=== PATIENT | male | born 1995 | race Caucasian/White ===

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

== ENCOUNTER 2017-02-24 16:52 | Emergency (ER) | payer OTHER ==
[~2017-02-24] VITALS: Ht 175.3 cm; Wt 80.0 kg
[2017-02-24 16:55] VITALS: BP 142/92; PULSE 72; RESP 18; TEMP 97.8; O2SAT 98
[2017-02-24] MEDS ORDERED: FLUT1SPR5 EACH NARE (17:40)
[2017-02-24] MEDS ORDERED: BACT800T5 PO (17:40)
--- NOTE | 2017-02-24 17:44 | PD ---
HPI Chief Complaint: ENT Complaint Time Seen by Provider: 17:29 Travel History International Travel<30 days: No Contact w/Intl Traveler<30days: No Traveled to known affect area: No History of Present Illness HPI 21-year-old male presents to emergency Department with 2 week history of upper respiratory symptoms including sinus congestion, rhinitis, ear pain, sore throat , cough, which is worse at night. Patient denies chest pain or congestion. No wheezing. No nausea, vomiting, or diarrhea. No significant fever. Patient is concerned he may have strep throat. He is allergic to penicillin. PFSH Past Medical History ADHD: Yes (ADHD) Anxiety: Yes Cancer: No Cardiovascular Problems: Yes (HTN) Developmental Delay: No Diabetes: No Diminished Hearing: No Headaches: Yes Hiatal Hernia: Yes Hypertension: Yes (DOES NOT TAKE PRESCRIBED MEDICATIONS) Psychiatric: Yes (ODD) Respiratory: No Immunizations Current: Yes Migraines: No Seizures: No Thyroid Disease: No Ulcer: No PNEUMOCCOCAL Vaccine (Year): 2 Past Surgical History AICD: No Section: Yes (CORD AROUND NECK) Joint Replacement: No Oral Surgery: Yes ([place] teeth) Pacemaker: No Tonsillectomy: Yes (2008 AND ADENOIDS) Other Surgery: No Social History Alcohol Use: No Tobacco Use: No Substance Use: No (Denies today 07/23/16) Allergies-Medications (Allergen,Severity, Reaction): Coded Allergies: penicillin G (Unverified Allergy, Severe, 02/24/17) Reported Meds & Prescriptions Reported Meds & Active Scripts Active Flonase Nasal [place] (Fluticasone Nasal [place]) 50 Mcg/Act [place] 100 Mcg EACH NARE BID Bactrim DS (Sulfamethoxazole-Trimethoprim) 800-160 Mg Tab 1 Tab PO BID Review of Systems Except as stated in HPI: all other systems reviewed are Neg General / Constitutional: No: Fever, Chills Eyes: No: Visual changes HENT: Positive: Headaches, Sore Throat, Rhinitis, Rhinorrhea, Congestion, Earache, No: Vertigo, Lightheadedness, Nosebleed, Neck Stiffness, Neck Pain, Gingival Bleeding, Dental Difficulties, Ear Discharge Cardiovascular: No: Chest Pain or Discomfort Respiratory: Positive: Cough, No: Shortness of Breath, Wheezing, Sneezing Gastrointestinal: No: Nausea, Vomiting, Diarrhea, Abdominal Pain Genitourinary: No: Dysuria Musculoskeletal: No: Pain Skin: No Rash Neurologic: No: Weakness Psychiatric: No: Depression Endocrine: No: Polydipsia Hematologic/Lymphatic: No: Easy Bruising Physical Exam Narrative GENERAL: Patient appears in no acute distress. SKIN: Warm and dry. Normal color. Normal turgor. No rash. HEAD: Atraumatic. Normocephalic. EYES: Pupils equal and round. No scleral icterus. No injection or drainage. ENT: No nasal bleeding or discharge. Mucous membranes pink and moist. TMs are somewhat dull bilaterally without injection. There is having cerumen bilaterally. Patient has moderate sinus tenderness to both frontal and maxillary sinuses with notable swelling turbinates with inspection of the nares. There is purulent drainage noted in the posterior pharynx. Cobblestoning is present in the posterior pharynx as well. There is no significant lymphadenopathy or exudate. NECK: Trachea midline. Supple nontender without significant lymphadenopathy. CARDIOVASCULAR: Regular rate and rhythm. RESPIRATORY: No accessory muscle use. Clear to auscultation. Breath sounds equal bilaterally. GASTROINTESTINAL: Abdomen soft, non-tender, nondistended. Hepatic and splenic margins not palpable. MUSCULOSKELETAL: Extremities without clubbing, cyanosis, or edema. No obvious deformities. NEUROLOGICAL: Awake and alert. No obvious cranial nerve deficits. Motor grossly within normal limits. Five out of 5 muscle strength in the arms and legs. Normal speech. PSYCHIATRIC: Appropriate mood and affect; insight and judgment normal. Data Data Last Documented VS Vital Signs Date Time Temp Pulse Resp B/P (MAP) Pulse Ox O2 Delivery O2 Flow Rate FiO2 02/24/17 17:11 16 02/24/17 16:55 97.8 72 142/92 (109) 98 MDM Medical Decision Making Medical Screen Exam Complete: Yes Emergency Medical Condition: Yes Differential Diagnosis Upper respiratory infection. Sinusitis. Postnasal drip. Cough. Narrative Course Patient will be treated with Bactrim DS twice a day 10 days. Patient also given Flonase nasal spray 2 sprays each nostril daily. Patient can use Tylenol and ibuprofen as needed. Of the symptoms persist or worsen as needed. Diagnosis Primary Impression: Acute sinusitis Qualified Codes: J01.40 - Acute pansinusitis, unspecified Referrals: Primary Care Physician Patient Instructions: General Instructions, Rhinosinusitis (GEN) Additional Instructions: Patient will be treated with Bactrim DS twice a day 10 days. Patient also given Flonase nasal spray 2 sprays each nostril daily. Patient can use Tylenol and ibuprofen as needed. Of the symptoms persist or worsen as needed. Med/Other Pt SpecificInfo: Prescription(s) given Scripts Fluticasone Nasal [place] (Flonase Nasal [place]) 50 Mcg/Act [place] 100 MCG EACH NARE BID for Allergies, #1 BOTTLE 0 Refills Prov: Jewel Baum MD 02/24/17 Sulfamethoxazole-Trimethoprim (Bactrim DS) 800-160 Mg Tab 1 TAB PO BID for Infection, #20 TAB 0 Refills Prov: Jewel Baum MD 02/24/17 Disposition: 01 DISCHARGE HOME Condition: Stable Donis Boateng Feb 24, 2017 17:44
== END 2017-02-24 17:59 | disposition home or self-care (01) ==
LOC: NEPD 16:52
DX: J01.90 Acute sinusitis, unspecified (principal); F90.9 Attention-deficit hyperactivity disorder, unspecified type; F41.9 Anxiety disorder, unspecified; I10 Essential (primary) hypertension; Z88.0 Allergy status to penicillin; Z79.899 Other long term (current) drug therapy
CPT/HCPCS: 99283

== ENCOUNTER 2017-03-22 18:00 | Emergency (ER) | payer OTHER ==
[~2017-03-22] VITALS: Ht 177.8 cm; Wt 94.7 kg
[~2017-03-22 18:00] MED LIST changes: +FLUT1SPR5 EACH NARE
[2017-03-22] MEDS ORDERED: IOHEXOL 350 MG/ML 10 ML VIAL (for RAD DIAG) IVCONTRAST ONE (18:01)
[2017-03-22 18:03] VITALS: BP 177/87; PULSE 98; RESP 16; TEMP 98.1; O2SAT 98
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
[2017-03-22 19:12] LABS: AUTOMATED NEUTROPHIL # 4.6 TH/MM3 (1.8-7.7); BASOPHIL # 0.1 TH/MM3 (0-0.2); BASOPHIL % 1.3 % (0.0-2.0); EOSINOPHIL # 0.1 TH/MM3 (0-0.4); EOSINOPHIL % 0.7 % (0.0-4.0); HEMATOCRIT 51.5 % (39.0-51.0); HEMOGLOBIN 17.5 GM/DL (13.0-17.0); LYMPH % 28.5 % (9.0-44.0); LYMPHOCYTE # 2.1 TH/MM3 (1.0-4.8); MEAN CELL VOLUME 87.7 FL (80.0-100.0); MEAN CORPUSCULAR HEMOGLOBIN 29.7 PG (27.0-34.0); MEAN CORPUSCULAR HGB CONC 33.9 % (32.0-36.0); MEAN PLATELET VOLUME 8.9 FL (7.0-11.0); MONO % 7.3 % (0.0-8.0); MONOCYTE # 0.5 TH/MM3 (0-0.9); NEUT % 62.2 % (16.0-70.0); PLATELET COUNT 246 TH/MM3 (150-450); RED BLOOD COUNT 5.87 MIL/MM3 (4.50-5.90); RED CELL DISTRIBUTION WIDTH 12.2 % (11.6-17.2); WHITE BLOOD COUNT 7.4 TH/MM3 (4.0-11.0)
[2017-03-22 19:22] LABS: BICARBONATE 29.7 MEQ/L (21.0-32.0); CALCIUM 9.5 MG/DL (8.5-10.1)
[2017-03-22 19:26] LABS: CREATININE 0.95 MG/DL (0.60-1.30)
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
[2017-03-22 21:35] VITALS: BP 150/90
== END 2017-03-22 21:38 | disposition home or self-care (01) ==
LOC: PHED 18:00
DX: R51 Headache (principal); I10 Essential (primary) hypertension; F90.9 Attention-deficit hyperactivity disorder, unspecified type; F41.9 Anxiety disorder, unspecified; Z88.0 Allergy status to penicillin; Z91.14 Patient's other noncompliance with medication regimen
CPT/HCPCS: 70450; 70496; 70498; 80048; 85025; 99284; Q9967

== ENCOUNTER 2017-05-03 13:43 | Emergency (ER) | payer OTHER ==
[~2017-05-03] VITALS: Ht 177.8 cm; Wt 95.0 kg
[2017-05-03 13:46] VITALS: BP 178/100; PULSE 108; RESP 14; TEMP 97.8; O2SAT 99
[2017-05-03] MEDS ORDERED: AZIT250T3 PO (13:51)
[2017-05-03] MEDS ORDERED: MEDR4PAK PO (13:51)
[2017-05-03 14:34] VITALS: PULSE 98; RESP 20; O2SAT 100
--- NOTE | 2017-05-03 14:52 | PD ---
HPI Chief Complaint: Chest Pain Time Seen by Provider: 14:43 Travel History International Travel<30 days: No Contact w/Intl Traveler<30days: No Traveled to known affect area: No History of Present Illness HPI 21-year-old male presents to emergency Department with about possible heart attack. Patient states he's had intermittent indigestion over the past week which she's been taking omeprazole 20 mg 4. Patient also states he's been anxious, and having palpitations over the past 24 hours. Patient states he recently started a Medrol Dosepak for sinus infection 2 days ago that he got in an urgent care. He is also taking azithromycin. He denies chest pain, but is very concerned about his symptoms. Patient denies fever, chills, vomiting, or diarrhea. He has no significant abdominal pain. He denies significant heartburn but has indigestion. He states that omeprazole seems to be helping somewhat. He is allergic to penicillin. PFSH Past Medical History ADHD: Yes (ADHD) Weight (Kg): 3 Anxiety: Yes Cancer: No Cardiovascular Problems: Yes (HTN) Developmental Delay: No Diabetes: No Diminished Hearing: No Headaches: Yes Hiatal Hernia: Yes Hypertension: Yes (DOES NOT TAKE PRESCRIBED MEDICATIONS) Medical other: Yes (ADHD) Psychiatric: Yes (ODD) Respiratory: No Immunizations Current: Yes Migraines: No Seizures: No Thyroid Disease: No Ulcer: No PNEUMOCCOCAL Vaccine (Year): 2 Past Surgical History AICD: No Section: Yes (CORD AROUND NECK) Joint Replacement: No Oral Surgery: Yes (Morris teeth) Pacemaker: No Tonsillectomy: Yes Other Surgery: No Social History Alcohol Use: No Tobacco Use: No Substance Use: No Allergies-Medications (Allergen,Severity, Reaction): Coded Allergies: penicillin G (Unverified Allergy, Unknown, UNKNOWN- A CHILD, 05/03/17) Reported Meds & Prescriptions Reported Meds & Active Scripts Active Reported Azithromycin Unknown Strength Tab Unknown Dose PO DIRECTED Take 2 tabs (500 mg) on day 1 then 1 tab daily x 4 days. Medrol Dosepak (Methylprednisolone) 4 Mg Dspk 4 Mg PO DIRECTED Per Pharmacist direction Review of Systems Except as stated in HPI: all other systems reviewed are Neg General / Constitutional: No: Fever, Chills Eyes: No: Visual changes HENT: Positive: Headaches, No: Vertigo, Lightheadedness, Sore Throat, Rhinitis , Rhinorrhea, Congestion, Nosebleed, Neck Stiffness, Neck Pain, Gingival Bleeding, Dental Difficulties, Ear Discharge, Earache Cardiovascular: Positive: Palpitations, Tachycardia, No: Chest Pain or Discomfort, Irregular Rhythm, Diaphoresis Respiratory: No: Cough, Shortness of Breath, Wheezing Gastrointestinal: Positive: Nausea, Indigestion, Dysphagia, No: Vomiting, Diarrhea, Abdominal Pain, Hematemesis, Hematochezia, Constipation, Loss of Appetite Genitourinary: No: Dysuria Musculoskeletal: No: Pain Skin: No Rash Neurologic: No: Weakness Psychiatric: No: Depression Endocrine: No: Polydipsia Hematologic/Lymphatic: No: Easy Bruising Physical Exam Narrative GENERAL: Patient appears anxious and somewhat pressured speech. SKIN: Warm and dry. Normal color. Normal turgor. HEAD: Atraumatic. Normocephalic. EYES: Pupils equal and round. No scleral icterus. No injection or drainage. ENT: No nasal bleeding or discharge. Mucous membranes pink and moist. TMs are normal. NECK: Trachea midline. Supple and nontender. CARDIOVASCULAR: Tachycardic rate and normal rhythm. RESPIRATORY: No accessory muscle use. Clear to auscultation. Breath sounds equal bilaterally. GASTROINTESTINAL: Abdomen soft, non-tender, nondistended. Hepatic and splenic margins not palpable. MUSCULOSKELETAL: Extremities without clubbing, cyanosis, or edema. No obvious deformities. NEUROLOGICAL: Awake and alert. No obvious cranial nerve deficits. Motor grossly within normal limits. Five out of 5 muscle strength in the arms and legs. Normal speech. PSYCHIATRIC: Appropriate mood and affect; insight and judgment normal. Data Data Last Documented VS Vital Signs Date Time Temp Pulse Resp B/P (MAP) Pulse Ox O2 Delivery O2 Flow Rate FiO2 05/03/17 14:34 98 20 100 Room Air 05/03/17 13:46 97.8 MDM Medical Decision Making Medical Screen Exam Complete: Yes Emergency Medical Condition: Yes Medical Record Reviewed: Yes Differential Diagnosis Medication reaction. Anxiety. Palpitations. GERD. Narrative Course I explained to the patient I think most of his symptoms are due to reflux as well as reaction to the steroids he recently started taking. Patient is reassured that I do not feel he is a cardiac issue that requires a full workup at this time. Patient is advised that he can take Benadryl at night to help him sleep to counteract the side effects of the steroids that he is taking. Patient should follow with his primary care physician as needed or return here if symptoms worsen as needed. Diagnosis Primary Impression: Medication adverse effect Qualified Codes: T88.7XXA - Unspecified adverse effect of drug or medicament, initial encounter Additional Impressions: Rapid palpitations Anxiety about health Referrals: Primary Care Physician Patient Instructions: General Instructions, Prednisone (By mouth) Additional Instructions: I explained to the patient I think most of his symptoms are due to reflux as well as reaction to the steroids he recently started taking. Patient is reassured that I do not feel he is a cardiac issue that requires a full workup at this time. Patient is advised that he can take Benadryl at night to help him sleep to counteract the side effects of the steroids that he is taking. Patient should follow with his primary care physician as needed or return here if symptoms worsen as needed. Med/Other Pt SpecificInfo: No Change to Meds Disposition: 01 DISCHARGE HOME Condition: Stable Donis Boateng May 03, 2017 14:52
== END 2017-05-03 15:08 | disposition home or self-care (01) ==
LOC: NEPD 13:43
DX: T88.7XXA Unspecified adverse effect of drug or medicament, initial encounter (principal); R00.2 Palpitations; K30 Functional dyspepsia; F41.9 Anxiety disorder, unspecified; K21.9 Gastro-esophageal reflux disease without esophagitis; I10 Essential (primary) hypertension; Z86.59 Personal history of other mental and behavioral disorders
CPT/HCPCS: 99282